=== PATIENT | male | born 1980 | race American Indian/Alaskan Native ===

== ENCOUNTER 2019-05-11 07:34 | Emergency (ER) | payer MEDICAID ==
[2019-05-11] MEDS ORDERED: BOOSTRIX IM ONE (10:03)
[2019-05-11] MEDS ORDERED: TRIPLE ANTIBIOTIC TP ONE (10:06)
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
[2019-05-11] MEDS ORDERED: IBUPROFEN PO ONE (10:20)
[2019-05-11 10:47] VITALS: BP 107/75
== END 2019-05-11 10:46 | disposition home or self-care (01) ==
LOC: ED 07:34
DX: S11.91XA Laceration without foreign body of unspecified part of neck, initial encounter (principal); F17.200 Nicotine dependence, unspecified, uncomplicated; W18.30XA Fall on same level, unspecified, initial encounter; Y93.89 Activity, other specified; Y92.89 Other specified places as the place of occurrence of the external cause; Y99.8 Other external cause status
CPT/HCPCS: 90471; 90715; 99282; A6250

== ENCOUNTER 2021-01-06 11:46 | Emergency (ER) | payer MEDICAID ==
[2021-01-06 11:52] VITALS: BP 148/84
[2021-01-06] MEDS ORDERED: ACETAMINOPHEN 500 MG TAB PO ONE (12:02)
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
--- NOTE | 2021-01-06 12:52 | XRay Report ---
XR ribs UNILAT 2V RT INDICATION / CLINICAL INFORMATION: fall/right rib pain COMPARISON: None available. FINDINGS: SUPPORT DEVICES: None. HEART / MEDIASTINUM: No significant abnormality. LUNGS / PLEURA: Lungs are clear. Costophrenic sulci are sharp. No pneumothorax. RIBS: No acute rib fracture identified. IMPRESSION: 1. No acute rib fracture. Signer Name: Pb Bello MD Signed: 01/06/2021 12:48 PM Workstation Name: [id number]
--- NOTE | 2021-01-06 12:53 | XRay Report ---
XR hand 3+V LT INDICATION / CLINICAL INFORMATION: Fall hand pain. COMPARISON: None available. FINDINGS: No acute fracture. Normal alignment. Joint spaces are preserved. No destructive osseous lesion or s uspicious periosteal reaction. Impression: 1.No acute fracture. Signer Name: Pb Bello MD Signed: 01/06/2021 12:49 PM Workstation Name: [id number]
== END 2021-01-06 14:00 | disposition home or self-care (01) ==
LOC: ED 11:46
DX: S20.211A Contusion of right front wall of thorax, initial encounter (principal); S60.222A Contusion of left hand, initial encounter; F17.200 Nicotine dependence, unspecified, uncomplicated; Z98.890 Other specified postprocedural states; Z79.1 Long term (current) use of non-steroidal anti-inflammatories (NSAID); Z88.8 Allergy status to other drugs, medicaments and biological substances; W19.XXXA Unspecified fall, initial encounter; Y93.89 Activity, other specified; Y92.89 Other specified places as the place of occurrence of the external cause; Y99.8 Other external cause status

== ENCOUNTER 2021-07-23 14:37 | Emergency (ER) | payer MEDICAID ==
[2021-07-23 19:37] VITALS: BP 135/71
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
== END 2021-07-23 20:42 | disposition home or self-care (01) ==
LOC: ED 14:37
DX: S40.862A Insect bite (nonvenomous) of left upper arm, initial encounter (principal); L03.114 Cellulitis of left upper limb; L73.9 Follicular disorder, unspecified; L02.414 Cutaneous abscess of left upper limb; F17.200 Nicotine dependence, unspecified, uncomplicated; Z91.013 Allergy to seafood; Z91.041 Radiographic dye allergy status; W57.XXXA Bitten or stung by nonvenomous insect and other nonvenomous arthropods, initial encounter; Y93.89 Activity, other specified; Y92.89 Other specified places as the place of occurrence of the external cause; Y99.8 Other external cause status
CPT/HCPCS: 99281

== ENCOUNTER 2021-10-14 14:38 | Emergency (ER) | payer MEDICAID ==
--- NOTE | 2021-10-14 15:37 | XRay Report ---
XR elbow 3+V RT INDICATION / CLINICAL INFORMATION: elbow pain. COMPARISON: None available. FINDINGS: BONES/JOINT(S): No acute fracture or subluxation. No significant degenerative changes. SOFT TISSUES: Soft tissues along the dorsal elbow. No radiopaque foreign bodies or soft tissue gas. ADDITIONAL FINDINGS: None. Signer Name: Ten Veronica MD Signed: 10/14/2021 3:33 PM Workstation Name: [id number]
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
[2021-10-14 17:01] VITALS: BP 111/73
== END 2021-10-14 17:05 | disposition home or self-care (01) ==
LOC: ED 14:38
DX: M70.21 Olecranon bursitis, right elbow (principal); Z88.6 Allergy status to analgesic agent; Z91.013 Allergy to seafood; Z79.899 Other long term (current) drug therapy
CPT/HCPCS: 99283

== ENCOUNTER 2022-01-14 07:28 | Emergency (ER) | payer MEDICAID ==
[2022-01-14 09:41] VITALS: BP 114/80
[2022-01-14] MEDS ORDERED: LIDOCAINE-MPF (1%) 10 MG/1 ML VIAL 5 ML INFILTRATI ONE (09:44)
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
== END 2022-01-14 10:12 | disposition home or self-care (01) ==
LOC: ED 07:28
DX: R36.9 Urethral discharge, unspecified (principal); A64 Unspecified sexually transmitted disease; F17.200 Nicotine dependence, unspecified, uncomplicated
CPT/HCPCS: 96372; 99282; J0696; J3490